=== PATIENT | male | born 1980 | race Caucasian/White ===

== ENCOUNTER 2023-04-09 15:40 | Outpatient (CLI) | payer BC, SELFPAY | END 2023-04-09 15:41 | disposition home or self-care (01) | PROVIDERS: PCP Emergency Medicine; Visit Provider Emergency Medicine | DX: Z00.00 Encounter for general adult medical examination without abnormal findings (principal); E11.9 Type 2 diabetes mellitus without complications; E66.8 Other obesity; R81 Glycosuria | CPT/HCPCS: 80061; 80076; 84443; 86341 ==

== ENCOUNTER 2023-08-20 16:12 | Outpatient (CLI) | payer BC, SELFPAY | END 2023-08-20 16:13 | disposition home or self-care (01) | LOC: LKVREF 16:13 | PROVIDERS: PCP Emergency Medicine; Visit Provider Emergency Medicine | DX: E78.5 Hyperlipidemia, unspecified (principal); E11.9 Type 2 diabetes mellitus without complications | CPT/HCPCS: 82043; 82570 ==

== ENCOUNTER 2023-12-10 10:02 | Outpatient (CLI) | payer BC, SELFPAY | END 2023-12-10 10:03 | disposition home or self-care (01) | LOC: NFLDREF 12-19 14:50 | PROVIDERS: PCP Emergency Medicine; Referring Provider Emergency Medicine; Visit Provider Emergency Medicine | DX: E11.9 Type 2 diabetes mellitus without complications (principal); E78.49 Other hyperlipidemia | CPT/HCPCS: 80048; 80061 ==

== ENCOUNTER 2024-06-17 08:19 | Outpatient (CLI) | payer BC, SELFPAY | END 2024-06-17 08:20 | disposition home or self-care (01) | LOC: NFLDREF 06-21 16:19 | PROVIDERS: PCP Emergency Medicine; Referring Provider Emergency Medicine; Visit Provider Emergency Medicine | DX: E11.9 Type 2 diabetes mellitus without complications (principal); Z79.84 Long term (current) use of oral hypoglycemic drugs | CPT/HCPCS: 80053 ==

== ENCOUNTER 2025-04-12 08:08 | Outpatient (CLI) | payer BC, SELFPAY | END 2025-04-12 08:09 | disposition home or self-care (01) | LOC: NFLDREF 04-13 13:03 | PROVIDERS: PCP Emergency Medicine; Referring Provider Emergency Medicine; Visit Provider Emergency Medicine | DX: E78.49 Other hyperlipidemia (principal); R74.01 Elevation of levels of liver transaminase levels; E11.9 Type 2 diabetes mellitus without complications; E78.5 Hyperlipidemia, unspecified | CPT/HCPCS: 80053; 80061; 82043; 82570 ==